=== PATIENT | female | born 1970 | race Caucasian/White ===

== ENCOUNTER 2025-09-22 13:58 | Emergency (ER) | payer MEDICAID ==
[~2025-09-22] VITALS: Ht 162.6 cm; Wt 60.0 kg
[2025-09-22 14:32] VITALS: BP 186/114; PULSE 112; RESP 17; O2SAT 95
[2025-09-22 14:33] LABS: ISTAT ANION GAP 10.0 (8-12); ISTAT BUN 8.0 mg/dL (7-18); ISTAT CL 99.0 mmol/L (99-107); ISTAT CREATININE 0.7 mg/dL (0.6-1.1); ISTAT GLUCOSE 101.0 mg/dL (70-104); ISTAT HGB 14.3 g/dl (12.0-16.0); ISTAT Hct 42.0 %PCV (35-45); ISTAT IONIZED CALCIUM 1.11 mmol/L (1.03-1.32); ISTAT K 3.7 mmol/L (3.5-5.1); ISTAT NA 136.0 mmol/L (135-145); ISTAT TOTAL CO2 27.0 mmol/L (24-32); ISTAT eGFR 87.0 ML/MIN; POC BUN/CREATININE RATIO 11.4 (6.6-38.0)
[2025-09-22 14:51] LABS: MEAN PLATELET VOLUME 7.9 FL (7.4-10.4); RED CELL DISTRIBUTION WIDTH 13.5 % (11.5-14.5)
--- NOTE | 2025-09-22 15:06 | Physician Documentation ---
History of Present Illness ~ Chief Complaint: Nose bleed Stated Complaint: NOSE BLEED Time Seen by MD: 14:58 OK to notify your PCP?: Yes Source: patient, EMS Mode of Arrival: EMS Exam Limitations: no limitations HPI This is a 54-year-old female no significant past medical history coming in after being in transit to [place] from [facility] in [place]. While on route to [facility] ambulance broke down and came into [facility] to assess stability to continue to and the hospital after epistaxis started again. EMS put a Purdy in place which seemed to tamp in the epistaxis to a minimal. Patient was alert oriented x3 asymptomatic at this time. Patient appears frustrated with having to make. Which is reasonable. Threatened AMA several times however was able to convince patient best course of action would be to transfer to [facility] or to continue onto in the hospital after assessing vital signs and lab work. No other reported symptoms at this time review of systems negative for chest pain shortness of breath skin changes vision changes weakness dizziness abdominal pain or trauma. Medication Reconciliation Allergies: Coded Allergies: povidone-iodine (Verified Allergy, Unknown, 09/22/25) Uncoded Allergies: NORVASTATIN (Allergy, Unknown, 09/22/25) Review of Systems ROS Constitutional: Negative for fever and chills. HENT: Positive for epistaxis. Negative for sore throat and rhinorrhea. Eyes: Negative for pain and redness. Respiratory: Negative for cough and SOB. Cardiovascular: Negative for chest pain and palpitations. Gastrointestinal: Negative for nausea and vomiting. . Genitourinary: Negative for dysuria and hematuria. Musculoskeletal: Negative for acute back pain and acute neck pain. Skin: Negative for rash and pruritus. Neurological: Negative for acute numbness or weakness. Physical Exam Vital Signs: Heart Rate: 112, Respiratory Rate: 17, BP: 186/114, Pulse Oximetry: 95, Weight: 60.000 Oxygen Flow Rate: 0 Eye Lid: normal inspection Conjunctiva: normal inspection Cornea: normal inspection Nose: other (Epistaxis right nostril with Purdy in place minimal bleeding at this time.) Mouth/Throat: normal mouth inspection Teeth/Gums: normal inspection Chest: no accessory muscle use; No: accessory muscle use Cardiovascular: normal peripheral pulses, regular rate, rhythm Gastrointestinal: normal palpation Skin: normal color Neurologic: oriented x4, perlite grinder II-XII nml as tested Psychiatric: agitation Progress Results/Orders Results/Orders Completed Orders - RENETTA CHE MD Cbc/Diff (09/22/25 14:33) Vital Signs 09/22/25 14:32 Pulse 112 Resp 17 B/P (MAP) 186/114 Pulse Ox 95 O2 Flow Rate 0 Laboratory Tests Test 09/22/25 14:28 09/22/25 14:30 White Blood Count 11.8 H Red Blood Count 4.67 Hemoglobin 13.3 Hematocrit 40.7 Mean Corpuscular Volume 87.2 Mean Corpuscular Hemoglobin 28.5 Mean Corpuscular Hemoglobin Concent 32.7 L Red Cell Distribution Width 13.5 Platelet Count 286 Mean Platelet Volume 7.9 Neutrophils (%) (Auto) 73.1 Lymphocytes (%) (Auto) 17.6 L Monocytes (%) (Auto) 8.1 Eosinophils (%) (Auto) 0.6 Basophils (%) (Auto) 0.6 Neutrophils # (Auto) 8.7 H Lymphocytes # (Auto) 2.1 Monocytes # (Auto) 1.0 H Eosinophils # (Auto) 0.1 Basophils # (Auto) 0.1 CBC Comment Bedside Hemoglobin 14.3 Bedside Hematocrit 42 Bedside Sodium 136 Bedside Potassium 3.7 Bedside Chloride 99 Bedside Total CO2 27 Bedside Anion Gap 10 Bedside Blood Urea Nitrogen 8 Bedside Creatinine 0.7 Bedside Estimated GFR (eGFR) 87 BUN/Creatinine Ratio 11.4 Bedside Glucose 101 Bedside Ionized Calcium (Taylor) 1.11 Medical Decision Making Additional information obtaine: old records Findings EMT transport to [place] with break down required [facility] transport to take over in route to [place] for ENT treatment and evaluation of posterior nosebleed. Patient had active bleeding with concerns of unstable transport. I-STAT indicated hemo globin of 14 and evaluation per ER physician okayed safe to transport to accepting facility Ear Diff. Dx: Considerations: Unlikely: Abrasion, Cerumen impaction, Foreign body, Otitis externa, Barotrauma, Otitis media, Perforation, Referred pain- dental, Referred pain-pharyngitis, Referred pain-sinusitis, Referred pain-TMJ syn., Tympanic Membrane Injury, Other Eye Diff. Dx: Considerations: Unlikely: Chalazoin, Conjuctivits-allergic, Conjuctivitis-bacterial, Conjuctivits-chlamydial, Conjuctivitis-viral, Corneal abrasion, Corneal laceration, Corneal ulceration, Foreign body-conjuctiva, Foreign body-corneal, Foreign body-intraocular, Foreign body-lid, Glaucoma, Globe rupture, Hordeolum, Iritis, Orbital cellulitis, Periobital cellulitis, Retinal artery occulsion, Retinal vein occlusion, Rust ring, Subconjunctival hem, Ultraviolet keratitis, Uveitis, Vitreous hemorrhage, Other Nose Diff. Dx: Considerations: Include: Posterior nasal bleed Tooth Diff. Dx: Considerations: Unlikely: Alveolar fracture, Aveolar osteitis, ANUG, Facial cellulitis, Periapical abscess, Periodontal abscess, Post- extraction bleeding, Pulpitis, Trigeminal neuralgia, Tooth-avulsion, Tooth- eruption, Tooth-fracture, Tooth-subluxation, Other Throat Diff Dx: Considerations: Unlikely: AIDS, Epiglottitis, Esophageal rashawn diasis, Hand foot mouth disease, Herpangina, Herpetic stomatitis, Herpes simplex, Infection mononucleosis, Immunodeficiency, Ez's angina, Peritonsillar abscess, Peritonsillar cellulitis, Pharyngitis-diphtheria, Pharyngitis-strepococcal, Pharyngitis-viral, Thrush, URI, Other Departure Time of Disposition: 15:02 Disposition: 02 SHORT TERM HOSPITAL Impression: Primary Impression: Epistaxis Condition: Fair Discharge Instructions: Nosebleed, Adult Additional Instructions: Continue with previously arranged transport through [facility] to [place] for ENT evaluation and treatment of posterior nosebleed. I-STAT hemoglobin 14 Referrals: NO PRIMARY CARE PROVIDER (PCP) Education Educated: Patient, Other Educated regarding: diagnosis, treatment, need for follow up Signature Scribe Signature: No scribe Attestation: . ERNST PANTOJA NP Sep 22, 2025 15:06 RENETTA CHE MD Sep 22, 2025 19:26
== END 2025-09-22 15:45 | disposition home or self-care (01) ==
LOC: ER 13:58
DX: R04.0 Epistaxis (principal); Z88.8 Allergy status to other drugs, medicaments and biological substances
CPT/HCPCS: 36415; 80047; 85025; 99283; 99284